=== PATIENT | male | born 2000 | race American Indian/Alaskan Native ===

== ENCOUNTER 2024-11-18 21:50 | Emergency (ER) | payer BC, OTHER ==
[2024-11-18 21:57] VITALS: BP 131/82; RESP 18; TEMP 98.2; BMI 27.5
[2024-11-18] MEDS ORDERED: KETOROLAC TROMETHAMINE 30 MG/1 ML VIAL ONE (23:05)
[2024-11-18] MEDS: KETOROLAC TROMETHAMINE 30 MG/1 ML VIAL IM ONE (23:15)
[2024-11-18 23:36] VITALS: PULSE 88
[2024-11-19] MEDS ORDERED: BACITRACIN 0.9 GM PACKET ONE (00:51)
[2024-11-19] MEDS: BACITRACIN 0.9 GM PACKET TP ONE (00:53)
[2024-11-19] MEDS ORDERED: DIPHTH,PERTUSS(ACELL),TET 0.5 ML DISP.SYRIN IM ONE (01:38)
[2024-11-19] MEDS: DIPHTH,PERTUSS(ACELL),TET 0.5 ML DISP.SYRIN IM ONE (01:43)
[2024-11-19] MEDS: BACITRACIN ZINC 15 GM TUBE TOPICAL OINTMENT TP ONE (01:44)
== END 2024-11-19 02:03 | disposition home or self-care (01) ==
LOC: JER 21:50
PROC: 2W3DX1Z Immobilization of Left Lower Arm using Splint (ICD-10-PCS; principal; 2024-11-18)
PROC: 3E0233Z Introduction of Anti-inflammatory into Muscle, Percutaneous Approach (ICD-10-PCS; 2024-11-18)
PROC: 3E0234Z Introduction of Serum, Toxoid and Vaccine into Muscle, Percutaneous Approach (ICD-10-PCS; 2024-11-18)
DX: S62.025A Nondisplaced fracture of middle third of navicular [scaphoid] bone of left wrist, initial encounter for closed fracture (principal); S30.811A Abrasion of abdominal wall, initial encounter; S50.311A Abrasion of right elbow, initial encounter; S50.312A Abrasion of left elbow, initial encounter; S80.211A Abrasion, right knee, initial encounter; S60.512A Abrasion of left hand, initial encounter; R55 Syncope and collapse; Z23 Encounter for immunization; V28.49XA Other motorcycle driver injured in noncollision transport accident in traffic accident, initial encounter; Y92.410 Unspecified street and highway as the place of occurrence of the external cause
CPT/HCPCS: 29125; 70450-TC; 71046-TC-FY; 72170-TC-FY; 73070-TC-LT-FY; 73070-TC-RT-FY; 73110-TC-LT-FY; 73130-TC-LT-FY; 73562-TC-RT-FY; 90471; 90715; 96372; 99285-25